=== PATIENT | male | born 1960 | race Caucasian/White ===

== ENCOUNTER 2022-12-27 17:01 | Emergency (ER) | payer BC, SELFPAY ==
[2022-12-27 17:15] VITALS: BP 133/79; PULSE 83; RESP 20; TEMP 36.6; O2SAT 99; BMI 38.0
--- NOTE | 2022-12-27 17:41 | CRLHL7_ITS ---
For Patients: As a result of the Century Cures Act, medical imaging exams and procedure reports are released immediately into your electronic medical record. You may view this report before your referring provider. If you have questions, please contact your health care provider. INDICATION: Leg pain and swelling. TECHNIQUE: Ultrasound venous duplex lower right extremity. Compression venous exam was performed using miranda-scale, color Doppler, and spectral Doppler analysis. COMPARISON: None. FINDINGS: Deep veins: Sonographic imaging demonstrates the right common femoral, deep femoral, superficial femoral, popliteal, posterior tibial and the contralateral right common femoral veins to be fully compressible with normal color Doppler blood flow. Superficial veins: Greater saphenous vein is fully compressible. No popliteal cyst. IMPRESSION: Normal right lower extremity venous ultrasound, no sign of deep venous thrombosis. Dictated by Juan Ramon Sahu MD @ 12/27/2022 7:52:42 PM (Electronically Signed)
--- NOTE | 2022-12-27 17:42 | ED_ITS ---
HPI - Extremity Injury (Lower) General Date Seen: 12/27/22 Chief Complaint: Extremity Pain/Injury, Lower Stated Complaint: swelling pain right calf, knee surg last month Time Seen by Provider: 12/27/22 17:06 Source: patient and family Mode of arrival: ambulatory Limitations: no limitations History of Present Illness HPI Narrative: Patient is 62-year-old gentleman who presents here with right leg swelling or last 4-5 days, he had recent knee surgery, meniscal on the right leg, 1 month ago. He has no previous history DVTs he denies any chest pain shortness of breath or any other syncopal type issues associated with this. No previous history of any blood dyscrasias, coagulopathies, he is not taking any aspirin or any other blood thinners. I called the nursing line today and they recommended that he come in and get seen. He is here today with his . He is on amlodipine for blood pressure, for the last 3 months. Related Data Allergies Allergy/AdvReac Type Severity Reaction Status Date / Time No Known Drug Allergies Allergy Verified 12/27/22 17:15 Review of Systems Status of ROS: Reports: 6 or more systems reviewed and unremarkable except as noted in History and below PFSH PFS Social History Smoking Status: Never smoker Do you use any of these nicotine containing products: None Second hand tobacco smoke exposure: No How often do you have a drink containing alcohol: never How often do you have six or more drinks on one occasion: Never AUDIT-C Alcohol total score: 0 Non-prescribed substance use: denies use service: No Exam Narrative: Exam Narrative: This delightful gentleman seen in room 6, he is in no apparent distress speaking to me normally with easy respirations nontoxic. Chest is clear heart sounds are normal, his right leg shows some swelling now 1 to 2+ pitting edema, on the medial side of his calf region there is a tender spot, I can feel no palpable cords, he has a negative Monique time test, his the DP posterior tibial pulse pulses are normal, his knee has excellent range of motion from 0 through 90, and his portals of entry from his recent knee surgery are all well healed, popliteal fossa is normal. With no tenderness palpation there is no upper leg soreness swelling, and his hip has full range of motion. Const: Vital Signs, click to edit/add: Vital Signs - 24 hr 12/27/22 17:15 12/27/22 20:23 Temperature 98 F 98 F Pulse Rate [Pulse Oximeter] 83 83 Respiratory Rate 20 20 Blood Pressure [Le ft Upper Arm] 133/79 133/79 Pulse Oximetry 99 Oxygen Delivery Me thod Room Air Documenting provider has reviewed patient's vital signs: yes Course Course Hospital Course: No evidence of DVT, explained this to him given a copy he will call Orthopedics tomorrow. He will keep his leg elevated. Vital Signs Vital signs: Initial Vital Signs Temperature 98 F 12/27/22 17:15 Temperature Source Temporal Artery Scan 12/27/22 17:15 Pulse Rate 83 12/27/22 17:15 Pulse Rhythm Regular 12/27/22 17:15 Respiratory Rate 20 12/27/22 17:15 Blood Pressure 133/79 12/27/22 17:15 Blood Pressure Mean 97 12/27/22 17:15 Blood Pressure Position Supine 12/27/22 17:15 Pulse Oximetry 99 12/27/22 17:15 Oxygen Delivery Method Room Air 12/27/22 17:15 Vital Signs Temperature 98 F 12/27/22 17:15 Pulse Rate 83 12/27/22 17:15 Respiratory Rate 20 12/27/22 17:15 Blood Pressure 133/79 12/27/22 17:15 Pulse Oximetry 99 12/27/22 17:15 Oxygen Delivery Method Room Air 12/27/22 17:15 Temperature 98 F 12/27/22 20:23 Pulse Rate 83 12/27/22 20:23 Respiratory Rate 20 12/27/22 20:23 Blood Pressure 133/79 12/27/22 20:23 Pulse Oximetry 99 12/27/22 17:15 Oxygen Delivery Method Room Air 12/27/22 17:15 MDM - Extremity Injury (Lower) MDM Narrative Medical decision making narrative: Discussed with this gentleman, we will order ultrasound of his right lower extremity, explained the process to him, if this is negative then I would favor superficial process, tear injury occurring. But given his risk factors I think it is prudent to rule out DVT. Medical Records Attestation: I reviewed the patient's medical records. Imaging Data Extremity ultrasound: Radiologist's impression: Patient: TIFFANY ESTRADAJACIEL Facility: [facility] Site . Site : 1960 Study: US Extremity Right LEV-12/27/2022 6:33:56 PM Ordering Physician: Laly Lord Final Report: INDICATION: Leg pain and swelling. TECHNIQUE: Ultrasound venous duplex lower right extremity. Compression venous exam was performed using miranda-scale, color Doppler, and spectral Doppler analysis. COMPARISON: None. FINDINGS: Deep veins: Sonographic imaging demonstrates the right common femoral, deep femoral, superficial femoral, popliteal, posterior tibial and the contralateral right common femoral veins to be fully compressible with normal color Doppler blood flow. Superficial veins: Greater saphenous vein is fully compressible. No popliteal cyst. IMPRESSION: Normal right lower extremity venous ultrasound, no sign of deep venous thrombosis. Dictated by Juan Ramon Sahu MD @ 12/27/2022 7:52:42 PM (Electronic Signature) Discharge Plan Discharge Clinical Impression: Pain of right calf Patient Disposition: Home w/ Parent or Adult Condition: Stable Instructions: Leg Pain (ED) Additional Instructions: No evidence of blood clot in her leg, the radiologist significant think there is a lot of fluid. I think use of some ibuprofen 600 mg 3 times a day, elevation of the leg, and contacting your orthopedist tomorrow would be appropriate. If you do develop other symptoms such as shortness of breath chest pain passing out the need to come back but again I think this is a low suspicion for blood clot. Activity Level: No Restrictions Follow Up/Referrals: Nahum Ortiz PA-C [Primary Care Provider] - Stand Alone Forms: [employer] Info Instructions
--- NOTE | 2022-12-27 19:29 | ED.NURSE ---
Report received from SARIAH Bartholomew.
[2022-12-27 20:23] VITALS: BP 133/79; PULSE 83; RESP 20; TEMP 36.6
== END 2022-12-27 20:23 | disposition home or self-care (01) ==
PROVIDERS: Emergency Provider Family Medicine; PCP Physician Assistant
DX: M79.604 Pain in right leg (principal)
CPT/HCPCS: 93971; 99283; 99284